=== PATIENT | female | born 1985 | race Caucasian/White ===

== ENCOUNTER 2021-05-02 09:54 | Emergency (ER) | payer OTHER, MEDICAID, SELFPAY ==
[2021-05-02] VITALS (8 sets, daily range): BP systolic 110–132; BP diastolic 64–81; PULSE 68–90; RESP 14–22; TEMP 36.2; O2SAT 83–99
[2021-05-02 10:26] LABS: Add Manual Diff / Slide Review NO; Basophils Absolute Auto 100 /uL (0-100); Basophils Percent Auto 1.2 % (0-2); Eosinophils Absolute Auto 100 /uL (0-450); Eosinophils Percent Auto 3.4 % (2-4); Hematocrit 34.7 % (36-46); Hemoglobin 11.6 g/dL (12.0-16.0); Lymphocytes Absolute Auto 1400 /uL (1100-4500); Lymphocytes Percent Auto 31.3 % (25-40); Mean Corpuscular HGB Conc 33.5 % (30-36); Mean Corpuscular Volume 110.5 fL (80-100); Monocytes Absolute Auto 600 /uL (0-900); Monocytes Percent Auto 14.5 % (3-14); Neutrophils Absolute Auto 2200 /uL (1500-7000); Neutrophils Percent Auto 49.6 % (50-75); Platelet Count 317 X10^3/uL (150-400); Red Blood Cell Count 3.14 X10^6/uL (4.0-5.2); Red Cell Distribution Width 13.4 % (11.6-14.8); White Blood Cell Count 4.4 X10^3/uL (4.5-11.0)
[2021-05-02 10:36] LABS: BUN Creatinine Ratio 12.8 (6-22); Blood Urea Nitrogen 6 mg/dL (7-17); Calcium 9.9 mg/dL (8.4-10.2); Carbon Dioxide 20 mmol/L (22-32); Chloride 101 mmol/L (98-107); Estimated Glomerular Filt Rate > 60.0 mL/min (>60); Glucose 90 mg/dL (70-100); HEMOLYSIS < 15 (0-50); Magnesium 1.5 mg/dL (1.6-2.3); Phosphorous 3.5 mg/dL (2.5-4.5); Potassium 3.8 mmol/L (3.4-5.1); Sodium 137 mmol/L (137-145)
--- NOTE | 2021-05-02 11:14 | ED.SEIZURE ---
HPI - Seizure General Chief Complaint: Seizure Stated Complaint: Fell on shoulder Time Seen by Provider: 05/02/21 11:02 Source: patient and EMS Mode of arrival: EMS Limitations: no limitations History of Present Illness HPI Narrative: This is a 35-year-old female who comes to the emergency department with complaint of seizure-like activity. Patient does not recall the event. She he does have a history of seizures at age 9, she was on Tegretol until the age of 14. She did not have any additional seizures until about 6-8 months ago when she was in [facility]. She had 1 episode then that was witnessed by her mother. She did have an EEG and saw Neurology and rosa. She did not receive the results of those findings. She currently lives in on [facility]. [facility] at clinic where she receives her daily methadone. The only changes to her medication have been they decreased by 5 mg 2 weeks ago. Patient states she has been feeling fine and tolerating it well. Patient has been taking methadone for 2 years. Patient is not on any other daily medications. She denies any major surgical history. She has not had any recent infections, she denies any symptoms other than feeling a little groggy at this time. Patient does not use tobacco, she does not drink alcohol regularly, she denies any illicit. Today's event she had about 2 or 3 minutes of tonic-clonic activity witnessed at the clinic. Patient was then confused afterwards and had slowly improving mentation. She was transferred here via EMS. Glucose here in the department was in the 70s the patient was given juice and has felt improved. Related Data Previous Rx's Medication Instructions Recorded lacosamide 150 mg tablet (Vimpat) 150 mg PO BID 14 Days #28 tab 05/02/21 Review of Systems Review of Systems ROS Unobtainable: All systems reviewed & are unremarkable except as noted in HPI and below Patient History Medical History (Updated 05/02/21 @ 11:28 by Nalini Hermosillo DO) Seizure alcohol intake frequency: 0-2 drinks per day Substance Use Type: former substance user Exam Narrative Exam Narrative: GEN: well nourished, well appearing female, alert and oriented x 3, patient appears to be in mild distress. HEENT: Atraumatic, pupils are equal round reactive to light, extraocular movements are intact, nares are clear.. Throat is clear without any exudates, erythema, tonsillar enlargement or uvular deviation, no facial droop. Clear speech. HEART: Regular rate and rhythm without murmur, clicks, rubs. Pulses are equal in upper and lower extremities LUNGS:Lungs clear to auscultation, no wheezes, rales, crackles, chest moves symmetrically ABD:bowel sounds normal, soft, non-tender, no guarding, rebound, rigidity, no masses noted, no hepatosplenomegaly :No CVA tenderness MSCL: Non-tender, no muscle atrophy, muscles strength 5/5 upper and lower extremities, full range of motion, normal gait NEURO:CN 2-12 intact, sensation normal, reflexes 2/4 upper and lower extremities, no tremor. Initial Vital Signs Initial Vital Signs: Vital Signs Temperature 97.1 F L 05/02/21 10:10 Pulse Rate 68 05/02/21 10:10 Respiratory Rate 14 05/02/21 10:10 Blood Pressure 132/72 05/02/21 10:10 Pulse Oximetry 99 05/02/21 10:10 Scores GCS [place] coma scale eye opening: Spontaneous [place] coma scale verbal response: Orientated [place] coma scale motor response: Obey commands [place] coma scale total score: 15 Course Orders Ordered: ED Orders 05/02/21 11:21 CT head/brain wo con Stat EKG-12 Lead Stat 05/02/21 12:36 Urine Drug Screen, Rapid Stat Discontinued Medications Lorazepam (Lorazepam 0.5 Mg Tablet) 1 mg PO NOW ONE Stop: 05/02/21 11:21 Last Admin: 05/02/21 11:36 Dose: 1 mg Documented by: SAMMY Vital Signs Vital signs: Vital Signs - 8 hr 05/02/21 11:35 05/02/21 12:00 05/02/21 12:04 Pulse Rate 88 82 80 Respiratory Rate 16 22 15 Blood Pressure 124/78 122/81 Pulse Oximetry 97 99 98 05/02/21 12:30 05/02/21 13:21 Pulse Rate 83 84 Respiratory Rate 21 16 Blood Pressure 114/73 112/64 Pulse Oximetry 96 99 MDM - Seizure Lab Data Result diagrams: 05/02/21 10:00 05/02/21 10:00 Labs: Lab Results 07/12/21 07/12/21 07/12/21 Range/Units 10:00 10:00 10:00 WBC 4.4 L (4.5-11.0) X10^3/uL RBC 3.14 L (4.0-5.2) X10^6/uL Hgb 11.6 L (12.0-16.0) g/dL Hct 34.7 L (36-46) % MCV 110.5 H (80-100) fL MCH 37.0 H (26-34) PG MCHC 33.5 (30-36) % RDW 13.4 (11.6-14.8) % Plt Count 317 (150-400) X10^3/uL Neut % (Auto) 49.6 L (50-75) % Lymph % (Auto) 31.3 (25-40) % [place] % (Auto) 14.5 H (3-14) % Eos % (Auto) 3.4 (2-4) % Baso % (Auto) 1.2 (0-2) % Neut # (Auto) 2200 (4136-2445) /uL Lymph # (Auto) 1400 (4511-5785) /uL [place] # (Auto) 600 (0-900) /uL Eos # (Auto) 100 (0-450) /uL Baso # (Auto) 100 (0-100) /uL RBC Morphology See below Macrocytosis 1+ H Sodium 137 (137-145) mmol/L Potassium 3.8 (3.4-5.1) mmol/L Chloride 101 (98-107) mmol/L Carbon Dioxide 20 L (22-32) mmol/L BUN 6 L (7-17) mg/dL Creatinine 0.47 L (0.52-1.04) mg/dL Estimated GFR > 60.0 (>60) mL/min BUN/Creatinine Ratio 12.8 (6-22) Glucose 90 (70-100) mg/dL Calcium 9.9 (8.4-10.2) mg/dL Phosphorus 3.5 (2.5-4.5) mg/dL Magnesium 1.5 L (1.6-2.3) mg/dL U Opiates 300ng/mL cut (Negative) Ur Oxycodone Screen (Negative) Urine Methadone Screen (Negative) Ur Barbiturates Screen (Negative) U Tricyclic Antidepress (Negative) Ur Phencyclidine Scrn (Negative) Ur Amphetamines Screen (Negative) U Methamphetamines Scrn (Negative) Ur MDMA Scrn (Ecstasy) (Negative) U Benzodiazepines Scrn (Negative) Urine Cocaine Screen (Negative) U Marijuana (THC) Screen (Negative) Ethyl Alcohol 30 H ( - 10) mg/dL 05/02/21 Range/Units 12:36 WBC (4.5-11.0) X10^3/uL RBC (4.0-5.2) X10^6/uL Hgb (12.0-16.0) g/dL Hct (36-46) % MCV (80-100) fL MCH (26-34) PG MCHC (30-36) % RDW (11.6-14.8) % Plt Count (150-400) X10^3/uL Neut % (Auto) (50-75) % Lymph % (Auto) (25-40) % [place] % (Auto) (3-14) % Eos % (Auto) (2-4) % Baso % (Auto) (0-2) % Neut # (Auto) (3183-4461) /uL Lymph # (Auto) (2152-4926) /uL Lincoln # (Auto) (0-900) /uL Eos # (Auto) (0-450) /uL Baso # (Auto) (0-100) /uL RBC Morphology Macrocytosis Sodium (137-145) mmol/L Potassium (3.4-5.1) mmol/L Chloride (98-107) mmol/L Carbon Dioxide (22-32) mmol/L BUN (7-17) mg/dL Creatinine (0.52-1.04) mg/dL Estimated GFR (>60) mL/min BUN/Creatinine Ratio (6-22) Glucose (70-100) mg/dL Calcium (8.4-10.2) mg/dL Phosphorus (2.5-4.5) mg/dL Magnesium (1.6-2.3) mg/dL U Opiates 300ng/mL cut Negative (Negative) Ur Oxycodone Screen Negative (Negative) Urine Methadone Screen Positive H (Negative) Ur Barbiturates Screen Negative (Negative) U Tricyclic Antidepress Negative (Negative) Ur Phencyclidine Scrn Negative (Negative) Ur Amphetamines Screen Negative (Negative) U Methamphetamines Scrn Negative (Negative) Ur MDMA Scrn (Ecstasy) Negative (Negative) U Benzodiazepines Scrn Negative (Negative) Urine Cocaine Screen Negative (Negative) U Marijuana (THC) Screen Negative (Negative) Ethyl Alcohol ( - 10) mg/dL Point of Care Testing Test Results Negative Glucose POC 76 Urine Dip Bedside Urine Glucose Negative Bedside Urine Bilirubin - Negative Bedside Urine Ketone - Negative Urine Specific [place] 1.015 Bedside Urine Occult Blood - Negative Bedside Urine pH 7.5 Bedside Urine Protein - Negative Bedside Urine Urobilinogen - Negative Bedside Urine Nitrite - Negative Bedside Urine Leukocytes - Negative Esterase Imaging Data CT scan - head: Radiologist's Impression: [address] [id number] Scan ReportSigned Patient: Shawanda Catherine LMR#: [id number]: [id number]:[id number]/Sex: 35 / FDate of Service: 05/02/21Loc: EDAccession Number: [id number] Procedure: CT head/brain wo con Ordering Provider: Nalini Hermosillo D.O. PROCEDURE: CT HEAD/BRAIN WO CON INDICATIONS: seizure, remote hx of seizuers as kid. TECHNIQUE: Noncontrast 4.5 mm thick angled axial sections acquired from the foramen magnum to the vertex, with coronal and sagittal reformats. For radiation dose reduction, the following was used: automated exposure control, adjustment of mA and/or kV according to patient size. COMPARISON: None. FINDINGS: Image quality: Excellent. CSF spaces: Basal cisterns are patent. No extra-axial fluid collections. Ventricles are normal in size and shape. Brain: No midline shift. No intracranial masses or hemorrhage. Guevara-white matter interface is normal. Skull and face: Calvarium and visualized facial bones are intact, without suspicious lesions. Sinuses: Visualized sinuses and mastoids are clear. IMPRESSION: No intracranial hemorrhage, mass, or other finding to explain seizure. Seizure protocol MRI could be considered on a nonemergent outpatient basis. Dictated by: Walt Patricio M.D. on 05/02/2021 at 11:36 Approved by: Walt Patricio M.D. on 05/02/2021 at 11:38 ECG Data Interpretation: Normal sinus rhythm rate of 70 9 IL 164 QRS of 96 and QTC of 463. No acute ST changes appreciated. MDM Narrative Medical decision making narrative: On repeat questioning patient states she did have several drinks last night which she initially did not share. It was noted on her Neurology note that her prior seizures had both been within 24 hours of alcohol withdrawal which is consistent with today's current situation as well. Patient had been prescribed Keppra but was changed to Vimpat 75 mg twice daily as well as intranasal Versed which patient states she still has. Her EEG showed no abnormalities at that time was a normal waking and drowsy EEG. Patient is going to call to set up follow-up with neurology but would like prescription to restart the Vimpat which she states she did take. Her final impression from her neurology visit was epilepsy, complex partial. Discharge Plan Departure Patient Disposition: Home Clinical Impression: Seizure Instructions: DI for Seizure Disorder -- Adult Activity Restrictions/Additional Instructions: Follow-up with neurology for recheck. Call for an appointment. Referral is included below. Methadone can increase risk of seizures and lower your dose may have lowered your seizure threshold. Alcohol with also lower your seizure threshold, you blood work does reflect alcohol in her system and as per your prior neurology records drinking and then cessation of alcohol is likely a provoking factor or cause of your recent seizure It was recommended to be on Vimpat by a neurologist in [place]. At that time they recommended Vimpat 75 mg twice daily. Your EEG at that time was negative. Please return for recurrent seizures. Altered mental status, severe headaches, new vision changes, difficulty with speech, new numbness tingling or weakness or other new or concerning symptoms. Prescriptions: New Vimpat 150 mg tablet 150 mg PO BID 14 Days Qty: 28 RF: 0 Referrals: Damien Alfonso MD [Non-Staff] -
--- NOTE | 2021-05-02 11:21 | DI.CT.S_ITS ---
PROCEDURE: CT HEAD/BRAIN WO CON INDICATIONS: seizure, remote hx of seizuers as kid. TECHNIQUE: Noncontrast 4.5 mm thick angled axial sections acquired from the foramen magnum to the vertex, with coronal and sagittal reformats. For radiation dose reduction, the following was used: automated exposure control, adjustment of mA and/or kV according to patient size. COMPARISON: None. FINDINGS: Image quality: Excellent. CSF spaces: Basal cisterns are patent. No extra-axial fluid collections. Ventricles are normal in size and shape. Brain: No midline shift. No intracranial masses or hemorrhage. Guevara-white matter interface is normal. Skull and face: Calvarium and visualized facial bones are intact, without suspicious lesions. Sinuses: Visualized sinuses and mastoids are clear. IMPRESSION: No intracranial hemorrhage, mass, or other finding to explain seizure. Seizure protocol MRI could be considered on a nonemergent outpatient basis. Dictated by: Walt Patricio M.D. on 05/02/2021 at 11:36 Approved by: Walt Patricio M.D. on 05/02/2021 at 11:38
[2021-05-02] MEDS: LORazepam 0.5 MG TABLET 1 MG PO (11:36)
[2021-05-02 12:25] LABS: Macrocytosis 1+
[2021-05-02 12:29] LABS: Ethanol (ETOH) 30 mg/dL
[2021-05-02 12:59] LABS: UR Morphine/Opiate cutoff 300 Negative (Negative); Ur Creatinine Normal (Normal); Ur Specific Gravity Normal (Normal); Urine Amphetamines Negative (Negative); Urine Barbiturates Negative (Negative); Urine Benzodiazepines Negative (Negative); Urine Cocaine Negative (Negative); Urine MDMA Negative (Negative); Urine Methadone Positive (Negative); Urine Methamphetamines Negative (Negative); Urine Oxycodone Negative (Negative); Urine Phencyclidine Negative (Negative); Urine Tetrahydrocannabinol Negative (Negative); Urine Tricyclic Antidepressant Negative (Negative); Urine pH Normal (Normal)
--- NOTE | 2021-05-03 12:41 | CM.SWNOTE ---
SAND CONDITIONER Note SAND CONDITIONER contacted patient at this date and time for f/u after ED visit. Patient thanks SAND CONDITIONER for f/u and endorses that she is doing great and feeling much better and back to normal. Patient endorses that she was sore and feeling foggy but those symptoms have subsided. Patient endorses that she had an appt today at [facility] and they prescribed her medication, plan to request records from [facility] ED and referred her for a neurologist. Patient states that she just moved here from [place] and had a neurologist there but is setting up providers now. Patient endorses that she will continue to receive services from [facility] and is coordinating care with her previous and new providers with them. Patient endorses that she was at [facility] when she had seizure and they sent her to this ED. Patient thanks SAND CONDITIONER for call and indicates no need for further f/u. SRINI Vazquez
== END 2021-05-02 13:21 | disposition home or self-care (01) ==
PROVIDERS: Emergency Provider Emergency Medicine
DX: R56.9 Unspecified convulsions (principal)
CPT/HCPCS: 36415; 70450; 80048; 80305; 80320; 81003; 81025; 82962; 83735; 84100; 85025; 93005; 93010; 99284